=== PATIENT | female | born 1980 | race African-American/Black ===

== ENCOUNTER 2016-12-04 08:35 | Emergency (ER) | payer OTHER ==
[~2016-12-04] VITALS: Ht 167.6 cm; Wt 90.7 kg
--- NOTE | 2016-12-04 08:39 | Emergency Room Report ---
History of Present Illness General Chief Complaint: To Be Triaged Present Illness HPI 36YOF [employer] patient with "abscess under right armpit" for 7 days Had abscess to left armpit previous Pain started after shaving area Denies fever/chills. Denies DM history Allergies: Coded Allergies: No Known Allergies (Unverified , 12/04/16) Patient History Past Medical History: none Past Surgical History: none Pertinent Family History: none Social History: Denies: alcohol use, drug use, smoking Now: No Immunizations: UTD Reviewed Nursing Documentation: PMH: Agreed, PSxH: Agreed Review of Systems All Other Systems: negative except mentioned in HPI Physical Exam Sp02 EP Interpretation: reviewed, normal General Appearance: normal inspection, well appearing, no apparent distress, alert Head: normocephalic ENT: normal ENT inspection, hearing grossly normal, normal voice Neck: normal inspection, full range of motion, supple, no bony tend Respiratory: normal inspection, lungs clear, normal breath sounds, no respiratory distress, no retraction, no wheezing Cardiovascular #1: regular rate, rhythm, no edema Gastrointestinal: normal inspection, normal bowel sounds, non tender, soft, no guarding, no hernia Genitourinary: no CVA tenderness Musculoskeletal: normal inspection, back normal, normal range of motion, Laila' s Sign negative Neurologic: normal inspection, alert, oriented x3, responsive, 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 Mild ertyhema/cellulitis. Medical Decision Making Diagnostic Impression: Primary Impression: Cellulitis ER Course Right axilla cellulitis vs early abscess - VSS Afebrile. - Rx Keflex/bactrim, analgesia Return to ER for worsening symptoms, abscess development for I&D DC home Status: improved Disposition: HOME, SELF-CARE Scripts Trimethoprim/Sulfamethoxazole 160/800* (BACTRIM DS TABLET*) 1 Each Tablet 1 TAB ORAL Q12H for 7 Days, #14 TAB 0 Refills Prov: MARCELLA MONTGOMERY M.D. 12/04/16 Ibuprofen* (MOTRIN*) 800 Mg Tablet 800 MG ORAL THREE TIMES A DAY for 7 Days, #30 TAB 0 Refills Prov: MARCELLA MONTGOMERY M.D. 12/04/16 Cephalexin* (KEFLEX*) 500 Mg Capsule 500 MG ORAL Q6H for 7 Days, #28 CAP 0 Refills Prov: MARCELLA MONTGOMERY M.D. 12/04/16 MARCELLA MONTGOMERY M.D. Dec 04, 2016 08:39
[2016-12-04 08:53] VITALS: BP 137/90
[2016-12-04] MEDS ORDERED: KEFLEX500 MG ORAL (08:59)
[2016-12-04] MEDS ORDERED: IBUPROFEN800 MG ORAL (08:59)
[2016-12-04] MEDS ORDERED: Cephalexin 500mg cap ORAL ONE (09:00)
[2016-12-04] MEDS ORDERED: Oxycodone/Acetaminophen 5-325 ORAL ONE (09:00)
[2016-12-04] MEDS ORDERED: BACTRIM DS TAB1 EAC1 ORAL (09:01)
[2016-12-04 09:25] VITALS: BP 137/90
== END 2016-12-04 09:25 | disposition home or self-care (01) ==
LOC: EMR 09:11
DX: L03.111 Cellulitis of right axilla (principal)
CPT/HCPCS: 99284